=== PATIENT | male | born 1995 | race Caucasian/White ===

== ENCOUNTER 2016-05-20 10:16 | Emergency (ER) | payer MEDICAID ==
[~2016-05-20] VITALS: Ht 167.6 cm; Wt 63.5 kg
[2016-05-20 13:00] VITALS: BP 132/75
[2016-05-20] MEDS ORDERED: PROMETHAZINE HCL 25 MG/ML 1ML IV ONE (13:00)
[2016-05-20] MEDS ORDERED: MORPHINE SULFATE 4 MG/ML SYRG IV ONE (13:00)
[2016-05-20] MEDS ORDERED: LIDOCAINE 1% HCL (LOCAL ANESTH.) INJ 20ML MDV IN ONE (13:15)
[2016-05-20] MEDS ORDERED: TETANUS-DIPTH-ACEL PERTUSSIS 0.5ML SYRG IM ONE (13:15)
[2016-05-20] MEDS ORDERED: NEOMYCIN-BACITRACIN-POLYM UNITDOSE PKG TOP OINT TOP ONE (13:15)
== END 2016-05-20 14:56 | disposition home or self-care (01) ==
LOC: ER 10:21 → EDBD 10:21 → ER 14:56
DX: S31.831A Laceration without foreign body of anus, initial encounter (principal); S31.823A Puncture wound without foreign body of left buttock, initial encounter; Z23 Encounter for immunization; W19.XXXA Unspecified fall, initial encounter; Y93.89 Activity, other specified; Y99.8 Other external cause status; Y92.61 Building [any] under construction as the place of occurrence of the external cause
CPT/HCPCS: 12002; 90471; 90715; 96374; 96375; 99284; J2001; J2270; J2550

== ENCOUNTER 2016-05-22 09:38 | Emergency (ER) | payer MEDICAID ==
[~2016-05-22] VITALS: Ht 167.6 cm; Wt 65.8 kg
[2016-05-22 10:36] VITALS: BP 132/82
== END 2016-05-22 11:15 | disposition home or self-care (01) ==
LOC: ER 09:38
DX: S36.63XD Laceration of rectum, subsequent encounter (principal); Z48.02 Encounter for removal of sutures

== ENCOUNTER 2016-08-04 01:59 | Emergency (ER) | payer MEDICAID ==
[~2016-08-04] VITALS: Ht 167.6 cm; Wt 65.8 kg
[2016-08-04 02:10] VITALS: BP 143/106
[2016-08-04] MEDS ORDERED: IBUPROFEN 600 MG TAB PO ONE (05:15)
== END 2016-08-04 05:30 | disposition home or self-care (01) ==
LOC: ER 02:02
DX: S93.402A Sprain of unspecified ligament of left ankle, initial encounter (principal); S90.812A Abrasion, left foot, initial encounter; X58.XXXA Exposure to other specified factors, initial encounter; Y93.56 Activity, jumping rope; Y99.8 Other external cause status; Y92.89 Other specified places as the place of occurrence of the external cause
CPT/HCPCS: 29515; 72070; 72100; 73610

== ENCOUNTER 2021-04-06 04:17 | Emergency (ER) | payer SELFPAY ==
[~2021-04-06] VITALS: Ht 167.6 cm; Wt 82.6 kg
[2021-04-06] MEDS ORDERED: KETOROLAC TROMETH 30 MG/ML 1ML VIAL IM ONE (05:00)
[2021-04-06 05:55] VITALS: BP 139/89
== END 2021-04-06 12:14 | disposition home or self-care (01) ==
LOC: ER 04:17
DX: S62.339A Displaced fracture of neck of unspecified metacarpal bone, initial encounter for closed fracture (principal); W22.8XXA Striking against or struck by other objects, initial encounter; Y93.89 Activity, other specified; Y92.89 Other specified places as the place of occurrence of the external cause; Y99.8 Other external cause status
CPT/HCPCS: 73130

== ENCOUNTER 2021-04-08 11:38 | Emergency (ER) | payer MEDICAID, OTHER ==
[~2021-04-08] VITALS: Ht 167.6 cm; Wt 81.2 kg
[2021-04-08 14:27] VITALS: BP 144/99
== END 2021-04-08 15:16 | disposition home or self-care (01) ==
LOC: ER 11:38
DX: S62.306A Unspecified fracture of fifth metacarpal bone, right hand, initial encounter for closed fracture (principal); W22.01XA Walked into wall, initial encounter; Y93.89 Activity, other specified; Y92.89 Other specified places as the place of occurrence of the external cause; Y99.8 Other external cause status
CPT/HCPCS: 29125